=== PATIENT | female | born 1965 | race Caucasian/White ===

== ENCOUNTER 2016-04-04 05:08 | Day surgery (SDC) | payer MEDICAID ==
[2016-04-03 17:58] LABS: BASOPHILS 0.7 % (0.0-2.0); EOSINOPHILS 3.7 % (0-7); HEMATOCRIT 32.8 % (36.0-48.0); HEMOGLOBIN 10.9 g/dL (12-16); IMMATURE GRANULOCYTES 0.1 % (0-5); LYMPHOCYTES 23.4 % (15-50); MCH 30.4 pg (26.0-34.0); MCHC 33.2 g/dL (31.0-37.0); MCV 91.4 fL (80.0-100.0); MEAN PLATELET VOLUME 11.2 fL (7.4-10.4); MONOCYTES 6.8 % (2-11); NEUTROPHILS 65.3 % (40-80); PLATELET COUNT 286 10x3/uL (130-400); RBC 3.59 10x6/uL (4.00-5.40); WBC 8.1 10x3/uL (4.8-10.8)
[2016-04-03 18:07] LABS: APTT 30.3 SECONDS (22.8-39.4); INR 0.98 (0.85-1.17); PROTIME 12.9 SECONDS (11.6-15.0)
[2016-04-03 18:10] LABS: ANION GAP 13.3 mmol/L (8-16); CALCIUM 9.2 mg/dL (8.5-10.1); CARBON DIOXIDE 27.6 mmol/L (21.0-32.0); POTASSIUM - SERUM 3.9 mmol/L (3.5-5.1)
[~2016-04-04] VITALS: Ht 167.6 cm; Wt 79.4 kg
[~2016-04-04 05:08] MED LIST: BAYER CHEWABLE81 MG PO; BUMEX2 MG PO; CATAPRES0.1 MG PO; COZAAR100 MG PO; FERROUS SULFAT325 MG PO; HUMALOG 30100 UNITS/ SC; LEVOTHROID100 MCG PO; LIPITOR80 MG PO; LOPRESSOR25 MG PO; LOPRESSOR50 MG PO; MULTIPLE VITAMI1 TA1 PO; NITROSTAT0.4 MG SL; NORCO 5/325 TAB1 TA1 PO; NORVASC5 MG PO; PROTONIX40 MG PO; ULTRAM50 MG PO; VITAMIN D2000 UNIT PO; ZOCOR40 MG PO
[2016-04-04 06:36] VITALS: Ht 167.6 cm; Wt 79.4 kg
[2016-04-04] MEDS ORDERED: HYDROCODON-ACE1 EAC7 PO (08:52)
--- NOTE | 2016-04-04 09:34 | NUR ---
0925-RECD FROM PACU. ALERT/ORIENTED. RESP WITH EASE. IV PATENT. ABD DRESSINGS X 2 DRY AND INTACT. AT BEDSIDE. 0930-ADA FULL LIQUID TRAY SERVED. PATIENT CONNECTS HER INSULIN PUMP.
--- NOTE | 2016-04-04 10:40 | NUR ---
DISCHARGE INSTRUCTIONS AND RX FOR NORCO GIVEN, DISCHARGED HOME VIA WC.
--- NOTE | 2016-04-04 13:07 | OP ---
PATIENT NAME: ZENIA FRANCOIS MEDICAL RECORD: [id number] :63 LOCATION:[facility] ADMISSION DATE: SURGEON: JIMY ROCK MD DATE OF OPERATION: 04/04/2016 PREOPERATIVE DIAGNOSES: Nonfunctioning of peritoneal dialysis catheter with secondary diagnosis of chronic kidney disease stage V. POSTOPERATIVE DIAGNOSES: Nonfunctioning of peritoneal dialysis catheter with secondary diagnosis of chronic kidney disease stage V. SECONDARY DIAGNOSIS: Chronic kidney disease stage V. OPERATION PERFORMED: Removal of tunneled intraperitoneal Tenckhoff dialysis catheter, dual cuff swan neck coil. SURGEON: Jimy Rock MD ANESTHESIA: Local plus IV sedation and monitoring per SUPERVISOR FACEPIECE LINE. REFERRING PHYSICIAN: Marcos Turcios MD PREOPERATIVE NOTE: Ms. Francois is a 50-year-old white female, diabetic, hypertensive patient with chronic kidney disease who had a fistula created and a PD catheter implanted sometime ago. Her renal function has improved or failed to decline, so that she has not had to start dialysis. Meanwhile, her peritoneal dialysis catheter has become hopelessly plugged with fibrin and will not flush since not considered to be salvageable and Dr. Turcios has asked me to remove it. PROCEDURE IN DETAIL: With the patient under IV sedation in supine position, she was prepped and draped in a sterile manner. Skin and subcutaneous tissues were anesthetized with 1% lidocaine with epinephrine and later to close the procedure, infiltrated with 0.25% Marcaine with epinephrine. The exit site skin wound was excised as a small transversely oriented ellipse of skin and a transverse incision made above it and carried down through the subcutaneous tissues to expose the catheter. The superficial cuff was dissected from surrounding fatty tissue and the catheter transected and the external portion removed in the outer cuff segment, removed, electrocautery dissection and down deeper towards the anterior rectus sheath. This revealed the deeper of the 2 Dacron felt cuffs. This was just outside the rectus and it was not necessary to open the rectus sheath. The cuff was dissected from the surrounding scar tissue and then the intraperitoneal catheter removed. All were discarded. None were sent for culture or pathology. The wounds were irrigated with Ancef/gentamicin solution and closed with interrupted inverted 3-0 Vicryl and running intracuticular 4-0 Monocryl and Dermabond glue. They were dressed with Maxorb Ag, Tegaderm and Cavilon skin prep and the patient awakened and returned to recovery room in stable condition. Blood loss was trivial and unreplaced. All sponges, instruments and needles were accounted for. No drain was used and no surgical specimen was submitted for histopathology. PLAN: The patient will be discharged today to use an ice pack off and on the operative area today and p.r.n. for pain relief for the next few days. She is OPERATIVE REPORT [id number] ZENIA FRANCOIS given a prescription for [place] 5/325, #30, one p.o. q.4 hours p.r.n. pain, no refills and then appointment to return to see me in my office in approximately 2 weeks. She may remove the operative dressing in 7-10 days and then begin washing the operative incisions with soap and water on a daily basis. She will resume activities as tolerated. She will resume and continue her home medications and her diabetic renal diet and insulin dosage. TRANSINT:[id number] Voice Confirmation ID: [id number] DOCUMENT ID: [id number] JIMY ROCK MD at 1307 CC: MARCOS TURCIOS MD and RAZIA DOWLING MD [id number] DICTATION DATE: 04/04/16 09 NET WASHER: 04/04/16 1141 [facility] 04/04/16 [facility] [address] [place] [address]
== END 2016-04-04 10:40 | disposition home or self-care (01) ==
LOC: D.OPS 05:08 → D.PAN 07:30 → D.OPS 07:30
PROVIDERS: Surgery
DX: T85.691A Other mechanical complication of intraperitoneal dialysis catheter, initial encounter (principal); E78.00 Pure hypercholesterolemia, unspecified; I12.0 Hypertensive chronic kidney disease with stage 5 chronic kidney disease or end stage renal disease; E11.22 Type 2 diabetes mellitus with diabetic chronic kidney disease; N18.6 End stage renal disease; E03.9 Hypothyroidism, unspecified

== ENCOUNTER 2017-12-01 05:24 | Observation (INO) | payer MEDICAID ==
[~2017-12-01] VITALS: Ht 167.6 cm; Wt 76.2 kg
--- NOTE | ~2017-12-01 | OP ---
PATIENT NAME: REBECA FRANCOIS MEDICAL RECORD: [id number] :63 LOCATION:[facility] ADMISSION DATE: SURGEON: JIMY ROCK MD DATE OF OPERATION: 12/01/2017 REFERRING PHYSICIAN: Ulisses Turcios MD PREOPERATIVE DIAGNOSES: CKD 5 and poorly maturing left radiocephalic AV fistula. OPERATIONS PERFORMED: 1. Laparoscopic implantation of a swan neck dual cuff coil Medcomp right-sided peritoneal dialysis catheter with an exit site in the right lower quadrant. 2. Left arm AV fistulogram with ultrasound guidance for access of the draining vein of the fistula and direct cannulation of the brachial artery above the elbow with then fistulogram and distal brachial artery arteriogram and angioplasty of arterial anastomotic stenosis and stenosis of the juxta-anastomotic segment. SURGEON: Jimy Rock MD ANESTHESIA: General endotracheal per BROTHEL KEEPER. PREOPERATIVE NOTE: Rebeca Francois is a 52-year-old white female patient with chronic kidney disease, who is here today for an implantation of dialysis catheter in the abdomen and for fistulogram and possible intervention for poorly developed left arm radiocephalic fistula. Under general endotracheal anesthesia, the patient was prepped and draped in a sterile manner. I made an incision in the left upper quadrant and inserted a 5-mm laparoscope. Pneumoperitoneum was established with carbon dioxide. I used the swan neck coil catheter and measured from the symphysis pubis up to the point where I wanted the Dacron felt cuff to remain within the substance of the rectus muscle. I made a vertical incision there and exposed the anterior rectus sheath. I then inserted an introducer needle and passed this through the rectus muscle and parallel to the posterior sheath and peritoneum for as long as possible before entering the peritoneal cavity. A guidewire and then a dilator peel-away sheath were inserted. After that, the catheter was inserted and I then buried the Dacron felt cuff beneath the anterior rectus sheath and placed a pursestring suture of #0 Vicryl. The catheter was then placed in a subcutaneous tunnel directed to the right and inferiorly through a previously identified exit site. The catheter was irrigated and noted to irrigate freely and then left to drain into a container held just beneath the patient and drained without any difficulties. I noted laparoscopically that there were no adhesions and no omentum to speak of. The catheter was then heparin locked. The wound was infiltrated with Marcaine and closed with interrupted inverted 3-0 Vicryl and running intracuticular 4-0 Stratafix. The port was removed from the left upper quadrant and the wound was infiltrated with Marcaine. The skin was then closed with an interrupted inverted 3-0 Vicryl suture. The incisions were glued and dressed with Steri-Strips, Maxorb Ag, Tegaderm, and Cavilon skin prep. The dialysis catheter was secured with quarter-inch Steri-Strips and Cavilon. Then, a chlorhexidine Biopatch was applied, and over that, a 4 x 4 Medipore adhesive or island dressing. The patient's arm was then prepped and draped in sterile manner and the fistula OPERATIVE REPORT [id number] REBECA FRANCOIS was examined with ultrasound. The problem seemed to be in the juxta-anastomotic segment and probably in the arterial anastomosis as well. The radial artery in the forearm was large and the radial artery distal to the anastomosis was small. The median antebrachial vein, which was the primary draining vein, was accessed with micropuncture technique and ultrasound and a fistulogram was performed, which demonstrated a stenotic JA segment and did not visualize the arterial anastomosis. I placed a 6-Kittitian introducer and advanced a Glidewire and [place] catheter. It was unable to pass the wire and catheter into the proximal radial artery, though it passed easily into the distal artery. I subsequently used ultrasound guidance and placed a micropuncture needle and guidewire percutaneously into the brachial artery above the elbow and subsequently an additional 6-Kittitian introducer was placed. A brachial artery arteriogram was performed, which revealed a large brachial artery with an anastomotic stenosis of about 80% and a similar 80% stenosis of the juxta-anastomotic segment. This was dilated with a 6-mm angioplasty balloon and the resultant images were considerably improved with essentially 0% residual stenosis. There was a significant stenosis however in one of the 2 draining veins, the cephalic vein laterally, which I think can be considered collateral vein, which in the future, may require either dilation or ligation depending on how this fistula develops. The ports were removed and hemostasis was obtained with [id number] 4-0 Prolene sutures and direct pressure, after which sterile dressings were applied. The patient was awakened from anesthetic and extubated, was taken to the recovery room. Blood loss was insignificant and unreplaced. All sponges, instruments, and needles were accounted for. I plan for her to go home today and follow up with the [facility] nurse within a week and return to see me in my office in 2 weeks. We will have to, for now, wait and see how her fistula develops. Also, she will have additional saline intravenously for hydration. She was treated preop with Mucomyst and will continue that medication as prescribed again this evening and tomorrow. BLOOD LOSS: About 5 cc, was unreplaced. COUNTS: Sponges, instruments, and needles were accounted for. SPECIMENS: No specimen was submitted. DRAINS: No drain was utilized. CONTRAST UTILIZED: Approximately 30 cc. TRANSINT:[id number] Voice Confirmation ID: [id number] DOCUMENT ID: [id number] JIMY ROCK MD at 1753 CC: [id number] DICTATION DATE: 12/01/17 1128 ASSISTANT ENGINEER: 12/01/17 1203 [facility] [address] [place] [address]
[~2017-12-01 05:24] MED LIST changes: +HYDROCODON-ACE1 EAC7 PO
[2017-12-01 05:59] LABS: BASOPHILS 0.7 % (0-2); EOSINOPHILS 9.3 % (0-7); HEMATOCRIT 34.7 % (36.0-48.0); HEMOGLOBIN 11.1 g/dL (12-16); IMMATURE GRANULOCYTES 0.2 % (0-5); MCH 29.4 pg (26.0-34.0); MCV 91.8 fL (80.0-100.0); MONOCYTES 11.3 % (2-11); NEUTROPHILS 54.5 % (40-80); RBC 3.78 10x6/uL (4.00-5.40); RDW 16.1 % (11.5-14.5); WBC 5.8 10x3/uL (4.8-10.8)
[2017-12-01 06:14] LABS: ANION GAP 20.7 mmol/L (8-16); CALCIUM 7.1 mg/dL (8.5-10.1); CARBON DIOXIDE 22.3 mmol/L (21.0-32.0); CREATININE - SERUM 9.6 mg/dL (0.6-1.3)
[2017-12-01 06:17] LABS: PLATELET COUNT 215 10x3/uL (130-400)
[2017-12-01 06:35] LABS: APTT 30.4 SECONDS (22.8-39.4); INR 1.02 (0.85-1.17)
[2017-12-01] MEDS ORDERED: COZAAR50 MG PO (07:19)
[2017-12-01 07:40] VITALS: BMI 27.8
[2017-12-01 17:07] LABS: CREATININE - SERUM 9.6 mg/dL (0.6-1.3)
[2017-12-01 17:18] LABS: ANION GAP 28.1 mmol/L (8-16); POTASSIUM - SERUM 6.1 mmol/L (3.5-5.1)
[2017-12-01 17:19] LABS: CALCIUM 6.5 mg/dL (8.5-10.1)
[2017-12-01] MEDS ORDERED: HUMALOG 30100 UNITS/ SC (19:52)
[2017-12-01] MEDS ORDERED: VITAMIN D5000 UNIT PO (19:53)
[2017-12-01] MEDS ORDERED: ZYRTEC10 MG PO (19:55)
[2017-12-01] MEDS ORDERED: SODIUM BICARBO325 MG PO (19:55)
[2017-12-01 19:58] VITALS: BMI 27.1
[2017-12-01 20:00] VITALS: BP 136/72
[2017-12-02 06:06] LABS: BASOPHILS 0.2 % (0-2); EOSINOPHILS 0.1 % (0-7); HEMATOCRIT 30.1 % (36.0-48.0); HEMOGLOBIN 9.5 g/dL (12-16); IMMATURE GRANULOCYTES 0.2 % (0-5); LYMPHOCYTES 6.7 % (15-50); MCH 29.1 pg (26.0-34.0); MCHC 31.6 g/dL (31.0-37.0); MEAN PLATELET VOLUME 10.3 fL (7.4-10.4); MONOCYTES 6.5 % (2-11); NEUTROPHILS 86.3 % (40-80); PLATELET COUNT 221 10x3/uL (130-400); RBC 3.27 10x6/uL (4.00-5.40); RDW 16.7 % (11.5-14.5)
[2017-12-02 06:22] LABS: WBC 14.3 10x3/uL (4.8-10.8)
[2017-12-02 06:35] LABS: BILIRUBIN - TOTAL 0.28 mg/dL (0.2-1.3); CREATININE - SERUM 9.5 mg/dL (0.6-1.3); PROTEIN - SERUM 6.2 g/dL (6.4-8.2)
[2017-12-02 06:41] LABS: ANION GAP 22.1 mmol/L (8-16); CARBON DIOXIDE 18.9 mmol/L (21.0-32.0)
[2017-12-02 07:57] VITALS: BP 171/79
[2017-12-02 12:26] VITALS: Ht 167.6 cm; Wt 76.2 kg
[2017-12-02 15:48] VITALS: BP 173/75
[2017-12-02 17:15] LABS: APPEARANCE CLEAR (CLEAR); BILIRUBIN NEGATIVE (NEGATIVE); COLOR YELLOW (YELLOW); GLUCOSE 500 mg/dL (NEGATIVE); KETONE NEGATIVE (NEGATIVE); NITRITE NEGATIVE (NEGATIVE); PROTEIN TRACE mg/dL (NEGATIVE); UROBILINOGEN NORMAL (NORMAL)
[2017-12-02 20:00] VITALS: BP 175/74
[2017-12-03 04:00] VITALS: BP 169/73
[2017-12-03 06:14] LABS: BASOPHILS 0.4 % (0-2); EOSINOPHILS 5.8 % (0-7); HEMATOCRIT 31.2 % (36.0-48.0); HEMOGLOBIN 9.8 g/dL (12-16); IMMATURE GRANULOCYTES 0.2 % (0-5); MCH 28.7 pg (26.0-34.0); MCHC 31.4 g/dL (31.0-37.0); MCV 91.5 fL (80.0-100.0); MEAN PLATELET VOLUME 10.8 fL (7.4-10.4); MONOCYTES 6.6 % (2-11); PLATELET COUNT 211 10x3/uL (130-400); RBC 3.41 10x6/uL (4.00-5.40)
[2017-12-03 06:15] LABS: WBC 10.7 10x3/uL (4.8-10.8)
[2017-12-03 07:05] LABS: ANION GAP 19.6 mmol/L (8-16); CARBON DIOXIDE 20.5 mmol/L (21.0-32.0); CREATININE - SERUM 10.2 mg/dL (0.6-1.3); PHOSPHOROUS 7.6 mg/dL (2.5-4.9); POTASSIUM - SERUM 4.1 mmol/L (3.5-5.1)
[2017-12-03 07:10] LABS: CALCIUM 6.7 mg/dL (8.5-10.1)
[2017-12-03 08:05] VITALS: BP 153/73
[2017-12-03] MEDS ORDERED: ROCALTROL0.25 MCG PO (10:51)
[2017-12-03] MEDS ORDERED: ZOFRAN ODT4 MG/UDTAB PO (10:53)
[2017-12-03] MEDS ORDERED: PHOSLO667 MG PO (10:55)
[2017-12-03] MEDS ORDERED: HYDROCODON-ACE1 EAC7 PO (10:57)
[2017-12-03 15:39] LABS: HEPATITIS C ANTIBODY <0.1 (0.0-0.9)
== END 2017-12-03 11:50 | disposition home or self-care (01) ==
LOC: D.OPS 05:24 → D.M2 18:58 → D.OPS 18:59 → D.M2 19:59 → OBSVTIME 20:00 → D.M2 12-03 11:50
PROVIDERS: Internal Medicine Nephrology
DX: T82.590A Other mechanical complication of surgically created arteriovenous fistula, initial encounter (principal); E11.22 Type 2 diabetes mellitus with diabetic chronic kidney disease; I12.0 Hypertensive chronic kidney disease with stage 5 chronic kidney disease or end stage renal disease; N18.6 End stage renal disease; Z99.2 Dependence on renal dialysis; E11.649 Type 2 diabetes mellitus with hypoglycemia without coma; E11.319 Type 2 diabetes mellitus with unspecified diabetic retinopathy without macular edema

== ENCOUNTER → 2017-12-10 15:21 | Outpatient (CLI) | payer MEDICAID ==
[2017-12-02 12:26] VITALS: BMI 27.1
[~2017-12-10 15:21] MED LIST changes: +COZAAR50 MG PO; +PHOSLO667 MG PO; +ROCALTROL0.25 MCG PO; +SODIUM BICARBO325 MG PO; +VITAMIN D5000 UNIT PO; +ZOFRAN ODT4 MG/UDTAB PO; +ZYRTEC10 MG PO
== END | disposition home or self-care (01) ==
LOC: D.RAD 15:21
DX: N18.6 End stage renal disease (principal)

== ENCOUNTER → 2020-08-07 10:48 | Outpatient (CLI) | payer MEDICARE, BC ==
[2017-12-02 12:26] VITALS: BMI 27.1
== END | disposition home or self-care (01) ==
LOC: D.CT 10:48
PROVIDERS: ATTEND Internal Medicine Nephrology
DX: R91.1 Solitary pulmonary nodule (principal); Z91.81 History of falling; Z87.440 Personal history of urinary (tract) infections